=== PATIENT | female | born 1990 | race Caucasian/White ===

== ENCOUNTER 2017-03-01 09:24 | Emergency (ER) | payer MEDICAID ==
[~2017-03-01] VITALS: Ht 165.1 cm; Wt 85.0 kg
[2017-03-01 09:24] VITALS: BP 168/98; PULSE 132; RESP 20; TEMP 99.9; O2SAT 99
[~2017-03-01 09:24] MED LIST: CIPR500T2 PO; DYAZ37.52 PO; HYDR10TA16 PO; PYRI200T4 PO
[2017-03-01] MEDS ORDERED: SODIUM CHLOR 0.9% 1000 ML INJ 1,000 ML IV ONE (09:45)
[2017-03-01] MEDS ORDERED: KETOROLAC TROMETHAMINE 30 MG/ML (IVP) VIAL IV PUSH ONE (09:45)
[2017-03-01] MEDS ORDERED: SODIUM CHLORIDE 0.9% FLUSH 10 ML FLUSH IVF PRN (09:45)
[2017-03-01] MEDS ORDERED: ONDANSETRON HCL 4 MG/2 ML VIAL IV PUSH ONE ×2 (09:45→10:45)
[2017-03-01 09:54] VITALS: BP 160/118; PULSE 116; RESP 22; O2SAT 100
--- NOTE | 2017-03-01 09:57 | PD ---
HPI Chief Complaint: Respiratory Symptoms Time Seen by Provider: 09:37 Travel History International Travel<30 days: No Contact w/Intl Traveler<30days: No Traveled to known affect area: No History of Present Illness HPI Patient is a 26 year old female who comes in complaining of shortness of breath and "shakiness." She says this started this morning at 8AM. She says that has had episodes like this for the past 2-3 months, but they usually do not last this long. She denies chest pain, but says that she has pain to her upper abdomen, both the left and right side. She has had nausea, but denies vomiting. She says she feels hot, but has not had a fever. She denies cough, but has had some congestion. She denies sore throat. She has not taken anything for her symptoms. [facility] Past Medical History Medical History: Denies Significant Hx Cancer: No Cardiovascular Problems: No Diabetes: No Hepatitis: No Hiatal Hernia: No Hypertension: No Medical other: No Respiratory: No Immunizations Current: Yes Thyroid Disease: No ?: Not LMP: 02/12/17 Past Surgical History Pacemaker: No Other Surgery: Yes Social History Alcohol Use: Yes (3 drinks daily) Tobacco Use: Yes Substance Use: No Allergies-Medications (Allergen,Severity, Reaction): Coded Allergies: No Known Allergies (Verified , 11/25/10) Reported Meds & Prescriptions Reported Meds & Active Scripts Active No Active Prescriptions or Reported Medications Review of Systems Except as stated in HPI: all other systems reviewed are Neg General / Constitutional: No: Fever HENT: Positive: Congestion, No: Headaches, Lightheadedness, Sore Throat Cardiovascular: Positive: Palpitations, No: Chest Pain or Discomfort Respiratory: Positive: Shortness of Breath, No: Cough Gastrointestinal: Positive: Nausea, Abdominal Pain, No: Vomiting Genitourinary: No: Dysuria Musculoskeletal: No: Edema, Pain Skin: No Rash, No Change in Pigmentation Neurologic: No: Weakness, Dizziness Psychiatric: Positive: Anxiety Physical Exam Narrative GENERAL: Awake and alert, in no acute distress. SKIN: Focused skin assessment warm/dry. No wounds or signs of infection. HEAD: Atraumatic. Normocephalic. EYES: Pupils equal and round. No scleral icterus. ENT: Mucous membranes pink and moist. NECK: Trachea midline. No JVD. CARDIOVASCULAR: Tachycardia. No murmur appreciated. RESPIRATORY: No accessory muscle use. Clear to auscultation. Breath sounds equal bilaterally. GASTROINTESTINAL: Abdomen soft, nondistended. Tender to palpation of the midepigastric area. No rebound or guarding. MUSCULOSKELETAL: No obvious deformities. No clubbing. No cyanosis. No edema. No calf tenderness. NEUROLOGICAL: Awake and alert. No obvious cranial nerve deficits. Motor grossly within normal limits. Normal speech. PSYCHIATRIC: Appropriate mood and affect; insight and judgment normal. Data Data Last Documented VS Vital Signs Date Time Temp Pulse Resp B/P (MAP) Pulse Ox O2 Delivery O2 Flow Rate FiO2 03/01/17 11:16 91 20 142/91 (108) 98 Room Air 03/01/17 09:24 99.9 Orders Orders Complete Blood Count With Diff (03/01/17 09:43) Comprehensive Metabolic Panel (03/01/17 09:43) D-Dimer (03/01/17 09:43) Act Partial Throm Time (Ptt) (03/01/17 09:43) Prothrombin Time / Inr (Pt) (03/01/17 09:43) Troponin I (03/01/17 09:43) Urinalysis - C+S If Indicated (03/01/17 09:43) Iv Access Insert/Monitor (03/01/17 09:43) Electrocardiogram (03/01/17 09:43) Ecg Monitoring (03/01/17 09:43) Oximetry (03/01/17 09:43) Oxygen Administration (03/01/17 09:43) Chest, Pa & Lat (03/01/17 09:43) Sodium Chloride 0.9% Flush (Ns Flush) (03/01/17 09:45) Ed Urine Pregnancytest Poc (03/01/17 09:43) Lipase (03/01/17 09:43) Sodium Chlor 0.9% 1000 Ml Inj (Ns 1000 M (03/01/17 09:45) Ketorolac Inj (Toradol Inj) (03/01/17 09:45) Ondansetron Inj (Zofran Inj) (03/01/17 09:45) Influenzae A/B Antigen (03/01/17 09:43) Ondansetron Inj (Zofran Inj) (03/01/17 10:45) Ct Abd/Pel W Iv Contrast(Rout) (03/01/17 ) Iohexol 350 Inj (Omnipaque 350 Inj) (03/01/17 11:30) Labs Laboratory Tests Test 03/01/17 09:50 03/01/17 10:05 White Blood Count 4.9 TH/MM3 Red Blood Count 3.50 MIL/MM3 Hemoglobin 13.3 GM/DL Hematocrit 38.5 % Mean Corpuscular Volume 109.8 FL Mean Corpuscular Hemoglobin 38.0 PG Mean Corpuscular Hemoglobin Concent 34.6 % Red Cell Distribution Width 15.4 % Platelet Count 112 TH/MM3 Mean Platelet Volume 9.5 FL Neutrophils (%) (Auto) 66.5 % Lymphocytes (%) (Auto) 25.4 % Monocytes (%) (Auto) 6.1 % Eosinophils (%) (Auto) 1.2 % Basophils (%) (Auto) 0.8 % Neutrophils # (Auto) 3.2 TH/MM3 Lymphocytes # (Auto) 1.2 TH/MM3 Monocytes # (Auto) 0.3 TH/MM3 Eosinophils # (Auto) 0.1 TH/MM3 Basophils # (Auto) 0.0 TH/MM3 CBC Comment DIFF FINAL Differential Comment Prothrombin Time 11.8 SEC Prothromb Time International Ratio 1.1 RATIO Activated Partial Thromboplast Time 26.7 SEC D-Dimer Quantitative (PE/DVT) LESS THAN 0.19 MG/L FEU Blood Urea Nitrogen 7 MG/DL Creatinine 0.85 MG/DL Random Glucose 95 MG/DL Total Protein 8.9 GM/DL Albumin 3.5 GM/DL Calcium Level 8.7 MG/DL Alkaline Phosphatase 93 U/L Aspartate Amino Transf (AST/SGOT) 119 U/L Alanine Aminotransferase (ALT/SGPT) 72 U/L Total Bilirubin 1.1 MG/DL Sodium Level 135 MEQ/L Potassium Level 4.0 MEQ/L Chloride Level 103 MEQ/L Carbon Dioxide Level 23.6 MEQ/L Anion Gap 8 MEQ/L Estimat Glomerular Filtration Rate 81 ML/MIN Troponin I LESS THAN 0.02 NG/ML Lipase 534 U/L Urine Color YELLOW Urine Turbidity HAZY Urine pH 6.5 Urine Specific [place] 1.017 Urine Protein NEG mg/dL Urine Glucose (UA) NEG mg/dL Urine Ketones NEG mg/dL Urine Occult Blood NEG Urine Nitrite NEG Urine Bilirubin NEG Urine Urobilinogen 4.0 MG/DL Urine Leukocyte Esterase SMALL Urine RBC 2 /hpf Urine WBC 3 /hpf Urine Squamous Epithelial Cells 8 /hpf Urine Bacteria RARE /hpf Microscopic Urinalysis Comment CULT NOT INDICATED MDM Medical Decision Making Medical Screen Exam Complete: Yes Emergency Medical Condition: Yes Medical Record Reviewed: Yes Differential Diagnosis Dehydration versus influenza versus viral illness versus pneumonia Narrative Course Patient is a 26-year-old female who comes in complaining of shortness of breath , upper abdominal pain, nausea. Exam shows some epigastric tenderness on palpation. IV established, labs sent. Labs show a lipase of 534. There are no other acute abnormalities. D-dimer is negative, troponin is negative. Chest x-ray shows no acute abnormalities. CT abdomen and pelvis shows prominence of the spleen, no other acute abnormalities. Patient informed of these results. She was given fluids and Toradol and feels better. She is able to drink water without vomiting. Last 24 hours Impressions Chest X-Ray 03/01/17 0943 Signed Impressions: Service Date/Time: Wednesday, March 01, 2017 09:52 - CONCLUSION: Normal examination. Manoj Zamora MD Patient does admit to drinking alcohol. She is advised that this can be a cause of pancreatitis. She is advised to avoid alcohol. Advised to drink fluids, avoid eating solids today. Advised to eat a bland diet tomorrow. Advised follow-up at the [facility] for repeat testing. Advised to return as needed for any worsening symptoms. Diagnosis Primary Impression: Pancreatitis Qualified Codes: K85.20 - Alcohol induced acute pancreatitis without necrosis or infection Referrals: [facility] Patient Instructions: General Instructions, Pancreatitis (ED) Additional Instructions: Drink liquids today, allow her pancreas to rest. Avoid alcohol. Eat a bland diet tomorrow. Follow-up in the [facility] for repeat blood work and repeat lipase. Return to the ED as needed for any worsening symptoms. Scripts No Active Prescriptions or Reported Meds Disposition: 01 DISCHARGE HOME Condition: Stable Sophia Tabares MD Mar 01, 2017 09:57
--- NOTE | 2017-03-01 10:03 | RADRPT ---
EXAM DATE/TIME: 03/01/2017 09:52 [facility] COMPARISON: No previous studies available for comparison. INDICATIONS : Chest pressure and dizziness. MEDICAL HISTORY : None. SURGICAL HISTORY : None. ENCOUNTER: Initial ACUITY: 2 weeks PAIN SCORE: 9/10 LOCATION: Bilateral lower chest FINDINGS: PA and lateral views of the chest demonstrate the lungs to be symmetrically aerated without evidence of mass, infiltrate or effusion. The cardiomediastinal contours are unremarkable. Osseous structure s are intact. CONCLUSION: Normal examination. Manoj Zamora MD on March 01, 2017 at 10:01 Board Certified Radiologist. This report was verified electronically.
[2017-03-01 10:10] LABS: AUTOMATED NEUTROPHIL # 3.2 TH/MM3 (1.8-7.7); BASOPHIL % 0.8 % (0.0-2.0); EOSINOPHIL # 0.1 TH/MM3 (0-0.4); EOSINOPHIL % 1.2 % (0.0-4.0); HEMATOCRIT 38.5 % (35.0-46.0); HEMO FLAGS DIFF FINAL; LYMPH % 25.4 % (9.0-44.0); LYMPHOCYTE # 1.2 TH/MM3 (1.0-4.8); MEAN CELL VOLUME 109.8 FL (80.0-100.0); MEAN CORPUSCULAR HGB CONC 34.6 % (32.0-36.0); MONO % 6.1 % (0.0-8.0); NEUT % 66.5 % (16.0-70.0); PLATELET COUNT 112 TH/MM3 (150-450); RED CELL DISTRIBUTION WIDTH 15.4 % (11.6-17.2); WHITE BLOOD COUNT 4.9 TH/MM3 (4.0-11.0)
[2017-03-01 10:25] LABS: APTT (PATIENT) 26.7 SEC (24.3-30.1); INTERNATIONAL NORMALIZED RATIO 1.1 RATIO; PROTHROMBIN TIME - PATIENT 11.8 SEC (9.8-11.6)
[2017-03-01 10:37] LABS: BACTERIA, URINE RARE /hpf; BLOOD, URINE NEG (NEG); COMMENT (UR) CULT NOT INDICATED; CULTURE IF INDICATED CULT NOT INDICATED; GLUCOSE,URINE NEG (NEG); KETONE, URINE NEG (NEG); NITRITE,URINE NEG (NEG); PH, URINE 6.5 (5.0-8.5); SQUAMOUS EPITHELIAL CELL URINE 8 /hpf (0-5); URINE COLOR YELLOW (YELLW/STRAW)
[2017-03-01 10:47] LABS: ALKALINE PHOSPHATASE 93 U/L (45-117); ALT (GPT) 72 U/L (10-53); TOTAL BILIRUBIN ADULT 1.1 MG/DL (0.2-1.0)
[2017-03-01 10:57] LABS: ANION GAP 8 MEQ/L (5-15); BICARBONATE 23.6 MEQ/L (21.0-32.0); BLOOD UREA NITROGEN 7 MG/DL (7-18); CHLORIDE 103 MEQ/L (98-107); GLOMERULAR FILTRATION RATE 81 ML/MIN (>89); SODIUM (NA) 135 MEQ/L (136-145)
[2017-03-01 11:01] LABS: AST (GOT) 119 U/L (15-37)
[2017-03-01 11:16] VITALS: BP 142/91; PULSE 91; RESP 20; O2SAT 98
[2017-03-01] MEDS ORDERED: IOHEXOL 350 MG/ML 10 ML VIAL (for RAD DIAG) IVCONTRAST ONE (11:30)
--- NOTE | 2017-03-01 11:43 | RADRPT ---
EXAM DATE/TIME: 03/01/2017 11:28 [facility] COMPARISON: No previous studies available for comparison. INDICATIONS : Generalized weakness, bilateral upper quadrant pain, nausea and vomiting. IV CONTRAST: 98 cc Omnipaque 350 (iohexol) IV ORAL CONTRAST: No oral contrast ingested. RADIATION DOSE: 16.67 CTDIvol (mGy) MEDICAL HISTORY : None SURGICAL HISTORY : Right renal stent ENCOUNTER: Initial ACUITY: 1 day PAIN SCALE: 0/10 LOCATION: Bilateral upper quadrant TECHNIQUE: Volumetric scanning of the abdomen and pelvis was performed. Using automated exposure control and ad justment of the mA and/or kV according to patient size, radiation dose was kept as low as reasonably achievable to obtain optimal diagnostic quality images. DICOM format image data is available electro nically for review and comparison. FINDINGS: LOWER LUNGS: The visualized lower lungs are clear. LIVER: Homogeneously lower density without lesion. There is no dilation of the biliary tree. No calcified gallstones. SPLEEN: Enlarged in size without lesion. PANCREAS: Within normal limits. KIDNEYS: The right kidney is larger than the left. There is no mass, stone or hydronephrosis. ADRENAL GLANDS: Within normal limits. VASCULAR: There is no aortic aneurysm. BOWEL/MESENTERY: The stomach, small bowel, and colon demonstrate no acute abnormality. There is no free intraperitone al air or fluid. ABDOMINAL WALL: Within normal limits. RETROPERITONEUM: There is no lymphadenopathy. BLADDER: No wall thickening or mass. REPRODUCTIVE: Within normal limits. INGUINAL: There is no lymphadenopathy or hernia. MUSCULOSKELETAL: Within normal limits for patient age. CONCLUSION: Normal examination except for mild asymmetry of the kidneys and a fatty liver. The spleen is prominen t in size almost 16 cm in cephalocaudad height Manoj Zamora MD on March 01, 2017 at 11:39 Board Certified Radiologist. This report was verified electronically.
[2017-03-01 12:46] VITALS: BP 131/81
--- NOTE | 2017-03-03 08:43 | EKG ---
Date Performed: 03/01/2017 Time Performed: 10:18:13 PTAGE: 26 years EKG: SINUS TACHYCARDIA ABNORMAL RHYTHM ECG NO PREVIOUS TRACING DOCTOR: Manoj Delgadillo Interpretating Date/Time 03/03/2017 08:42:19
== END 2017-03-01 12:58 | disposition home or self-care (01) ==
LOC: NEPD 09:24
DX: K85.20 Alcohol induced acute pancreatitis without necrosis or infection (principal)
CPT/HCPCS: 71020; 74177; 80053; 81001; 83690; 84484; 84703; 85025; 85379; 85610; 85730; 87804; 93005; 96361; 96374; 96376; 99285; J1885; J2405; J7030; Q9967

== ENCOUNTER 2017-09-02 10:57 | Emergency (ER) | payer BC, MEDICAID, OTHER ==
[~2017-09-02] VITALS: Ht 165.1 cm; Wt 94.0 kg
[2017-09-02 11:18] VITALS: BP 134/68; PULSE 127; RESP 18; TEMP 102.1; O2SAT 96
--- NOTE | 2017-09-02 11:52 | PD ---
HPI Chief Complaint: Flank/Kidney Pain Time Seen by Provider: 11:33 Travel History International Travel<30 days: No Contact w/Intl Traveler<30days: No Traveled to known affect area: No History of Present Illness HPI 27-year-old female complains of bilateral flank pain and dysuria and nausea vomiting. Patient states that symptoms started 4 days ago. Patient states that the pain is aching pain localized to bilateral flank area. Patient denies any pain radiation. Patient denies any vaginal discharge bleeding. Patient denies any fever chills. Patient has history kidney stone in the past. On a scale of 1-10 the pain is a 10. Patient states that she had fever this morning. Patient was seen at local urgent care center and referred to ED for evaluation. Patient was given Zofran 4 mg ODT and Tylenol 6 50 million p.o. prior to arrival. Patient has history of heavy alcohol abuse until recently. Patient states that she stopped drinking about a week ago. PFSH Past Medical History Cancer: No Cardiovascular Problems: No Diabetes: No Diminished Hearing: No Hepatitis: No Hiatal Hernia: No Hypertension: No Respiratory: No Immunizations Current: Yes Thyroid Disease: No Tetanus Vaccination: Unknown Influenza Vaccination: No ?: Not LMP: 08/26/17 Past Surgical History Pacemaker: No Other Surgery: Yes (lithotripsy) Social History Alcohol Use: Yes (3 drinks daily) Tobacco Use: Yes (quit 4 weeks ago) Substance Use: No Allergies-Medications (Allergen,Severity, Reaction): Coded Allergies: No Known Allergies (Verified Adverse Reaction, Unknown, 09/02/17) Reported Meds & Prescriptions Reported Meds & Active Scripts Active No Active Prescriptions or Reported Medications Review of Systems General / Constitutional: No: Fever Eyes: No: Visual changes HENT: No: Headaches Cardiovascular: No: Chest Pain or Discomfort Respiratory: No: Shortness of Breath Gastrointestinal: Positive: Nausea, Vomiting, No: Abdominal Pain Genitourinary: Positive: Dysuria Musculoskeletal: No: Pain Skin: No Rash Neurologic: No: Weakness Psychiatric: No: Depression Endocrine: No: Polydipsia Hematologic/Lymphatic: No: Easy Bruising Physical Exam Narrative GENERAL: Well-nourished, well-developed patient. SKIN: Focused skin assessment warm/dry. HEAD: Normocephalic. EYES: No scleral icterus. No injection or drainage. NECK: Supple, trachea midline. No JVD or lymphadenopathy. CARDIOVASCULAR: Regular rate and rhythm without murmurs, gallops, or rubs. RESPIRATORY: Breath sounds equal bilaterally. No accessory muscle use. GASTROINTESTINAL: Abdomen soft, non-tender, nondistended. MUSCULOSKELETAL: No cyanosis, or edema. BACK: Patient has bilateral CVA tenderness. Data Data Last Documented VS Vital Signs Date Time Temp Pulse Resp B/P (MAP) Pulse Ox O2 Delivery O2 Flow Rate FiO2 09/02/17 14:21 97 18 119/70 (86) 97 Room Air 09/02/17 13:34 99.1 Orders Orders Complete Blood Count With Diff (09/02/17 11:41) Comprehensive Metabolic Panel (09/02/17 11:41) Urinalysis - C+S If Indicated (09/02/17 11:41) Ct Abd/Pel W/O Iv Contrast (09/02/17 11:41) Iv Access Insert/Monitor (09/02/17 11:41) Ecg Monitoring (09/02/17 11:41) Oximetry (09/02/17 11:41) Ed Urine Pregnancytest Poc (09/02/17 11:41) Urine Culture (09/02/17 11:35) Ceftriaxone Inj (Rocephin Inj) (09/02/17 13:15) Ondansetron Odt (Zofran Odt) (09/02/17 13:15) Ketorolac Inj (Toradol Inj) (09/02/17 13:15) Sodium Chlorid 0.9% 500 Ml Inj (Ns 500 M (09/02/17 14:00) Potassium Chloride (Kcl) (09/02/17 14:00) Ed Discharge Order (09/02/17 14:32) Labs Laboratory Tests Test 09/02/17 11:35 09/02/17 12:11 Urine Collection Type VOIDED Urine Color GARY Urine Turbidity SL CLOUDY Urine pH 5.5 Urine Specific [place] 1.010 Urine Protein 30 mg/dL Urine Glucose (UA) 100 mg/dL Urine Ketones TRACE mg/dL Urine Occult Blood SMALL Urine Nitrite POS Urine Bilirubin MOD Urine Urobilinogen GREATER/EQUAL 8.0 MG/DL Urine Leukocyte Esterase LARGE Urine WBC INNUM /hpf Urine WBC Clumps FEW Urine Squamous Epithelial Cells >8 /hpf Urine Bacteria MANY /hpf Microscopic Urinalysis Comment CULTURE INDICATED White Blood Count 4.0 TH/MM3 Red Blood Count 3.10 MIL/MM3 Hemoglobin 11.5 GM/DL Hematocrit 33.9 % Mean Corpuscular Volume 109.2 FL Mean Corpuscular Hemoglobin 37.0 PG Mean Corpuscular Hemoglobin Concent 33.9 % Red Cell Distribution Width 16.1 % Platelet Count 55 TH/MM3 Mean Platelet Volume 9.8 FL Neutrophils (%) (Auto) 64.4 % Lymphocytes (%) (Auto) 23.8 % Monocytes (%) (Auto) 10.7 % Eosinophils (%) (Auto) 0.1 % Basophils (%) (Auto) 1.0 % Neutrophils # (Auto) 2.6 TH/MM3 Lymphocytes # (Auto) 1.0 TH/MM3 Monocytes # (Auto) 0.4 TH/MM3 Eosinophils # (Auto) 0.0 TH/MM3 Basophils # (Auto) 0.0 TH/MM3 CBC Comment AUTO DIFF Differential Comment AUTO DIFF CONFIRMED Platelet Estimate LOW Platelet Morphology Comment NORMAL Blood Urea Nitrogen 10 MG/DL Creatinine 1.10 MG/DL Random Glucose 97 MG/DL Total Protein 8.2 GM/DL Albumin 3.2 GM/DL Calcium Level 8.6 MG/DL Alkaline Phosphatase 50 U/L Aspartate Amino Transf (AST/SGOT) 58 U/L Alanine Aminotransferase (ALT/SGPT) 44 U/L Total Bilirubin 2.1 MG/DL Sodium Level 129 MEQ/L Potassium Level 3.0 MEQ/L Chloride Level 95 MEQ/L Carbon Dioxide Level 21.5 MEQ/L Anion Gap 13 MEQ/L Estimat Glomerular Filtration Rate 60 ML/MIN MDM Medical Decision Making Medical Screen Exam Complete: Yes Emergency Medical Condition: Yes Interpretation(s) 1340 PM. CBC WBC 4.0. Hemoglobin 11.5 hematocrit 33.9. MCV 109.2. Normal differential. Platelet 55. Sodium 129. Potassium 3.0. Creatinine 1.10. GFR 60. UA positive for WBC and bacteria. 1433 PM. Last Impressions Abdomen/Pelvis CT 09/02/17 1141 Signed Impressions: CONCLUSION: 1. Stranding of the perinephric fat degree adjacent to the upper pole the left kidney. No stones or hydronephrosis. This could relate to acute pyelonephritis . 2. Splenomegaly. 3. Cholelithiasis without CT evidence to suggest acute cholecystitis. Differential Diagnosis Differential diagnosis including pyelonephritis, nephrolithiasis, UTI, viral syndrome. Narrative Course 27-year-old female with bilateral flank pain and dysuria nausea vomiting and fever. Rocephin 1 g IV given. Toradol 30 mg IV. Zofran 4 mg ODT. Normal saline solution 500 cc IV bolus. KCl 40 mEq p.o. given. Diagnosis Primary Impression: Pyelonephritis Additional Impressions: Hyponatremia Hypokalemia Patient Instructions: General Instructions Additional Instructions: Advised patient to take [id number] B12 and folate supplement. Follow up with local physician for CBC and platelet count check. Avoid alcohol. Take medications as directed. Follow with local physician. Return if worse. Med/Other Pt SpecificInfo: Prescription(s) given Scripts Potassium Chloride ER (Potassium Chloride ER) 10 Meq Cap 10 MEQ PO DAILY for Electrolyte Replacement, #7 CAP 0 Refills Prov: Asher Negro MD 09/02/17 Ibuprofen (Ibuprofen) 600 Mg Tab 600 MG PO TID for Pain, #21 TAB 0 Refills Prov: Asher Negro MD 09/02/17 Tramadol (Tramadol) 50 Mg Tab 50 MG PO Q6H Y for PAIN, #12 TAB 0 Refills Prov: Asher Negro MD 09/02/17 Sulfamethoxazole-Trimethoprim (Bactrim DS) 800-160 Mg Tab 1 TAB PO BID for Infection, #20 TAB 0 Refills Prov: Asher Negro MD 09/02/17 Disposition: 01 DISCHARGE HOME Condition: Stable Asher Negro MD September 02, 2017 11:52
[2017-09-02 12:16] VITALS: O2SAT 98
[2017-09-02 12:21] LABS: AUTOMATED NEUTROPHIL # 2.6 TH/MM3 (1.8-7.7); EOSINOPHIL % 0.1 % (0.0-4.0); HEMATOCRIT 33.9 % (35.0-46.0); HEMOGLOBIN 11.5 GM/DL (11.6-15.3); LYMPH % 23.8 % (9.0-44.0); MEAN CELL VOLUME 109.2 FL (80.0-100.0); MEAN CORPUSCULAR HGB CONC 33.9 % (32.0-36.0); MEAN PLATELET VOLUME 9.8 FL (7.0-11.0); MONO % 10.7 % (0.0-8.0); MONOCYTE # 0.4 TH/MM3 (0-0.9); NEUT % 64.4 % (16.0-70.0); PLATELET COUNT 55 TH/MM3 (150-450); RED CELL DISTRIBUTION WIDTH 16.1 % (11.6-17.2)
[2017-09-02 12:24] LABS: BILIRUBIN, URINE MOD (NEG); BLOOD, URINE SMALL (NEG); GLUCOSE,URINE 100 mg/dL (NEG); KETONE, URINE TRACE mg/dL (NEG); NITRITE,URINE POS (NEG); PH, URINE 5.5 (5.0-8.5); URINE LEUKOCYTE ESTERASE LARGE (NEG)
[2017-09-02 12:26] LABS: URINE COLOR AMBER (YELLW/STRAW)
[2017-09-02 12:32] LABS: WBC, URINE INNUM /hpf (0-5); WHITE BLOOD CELL CLUMPS FEW
[2017-09-02 12:33] LABS: BACTERIA, URINE MANY /hpf; SQUAMOUS EPITHELIAL CELL URINE >8 /hpf (0-5)
[2017-09-02 12:34] LABS: CHLORIDE 95 MEQ/L (98-107); SODIUM (NA) 129 MEQ/L (136-145)
[2017-09-02 12:37] LABS: ALBUMIN 3.2 GM/DL (3.4-5.0); BICARBONATE 21.5 MEQ/L (21.0-32.0); BLOOD UREA NITROGEN 10 MG/DL (7-18); CALCIUM 8.6 MG/DL (8.5-10.1); GLUCOSE,RANDOM 97 MG/DL (74-106)
[2017-09-02 12:40] LABS: ALT (GPT) 44 U/L (10-53); AST (GOT) 58 U/L (15-37); GLOMERULAR FILTRATION RATE 60 ML/MIN (>89)
[2017-09-02 12:42] LABS: TOTAL BILIRUBIN ADULT 2.1 MG/DL (0.2-1.0); TOTAL PROTEIN 8.2 GM/DL (6.4-8.2)
[2017-09-02 12:43] LABS: ALKALINE PHOSPHATASE 50 U/L (45-117)
[2017-09-02 13:14] VITALS: BP 113/68; PULSE 100; RESP 16; O2SAT 98
[2017-09-02] MEDS ORDERED: KETOROLAC TROMETHAMINE 30 MG/ML (IVP) VIAL IV PUSH ONE (13:15)
[2017-09-02] MEDS ORDERED: cefTRIAXone INJ 1,000 MG in SODIUM CHLORIDE 0.9% INJ 100 ML IV ONE (13:15)
[2017-09-02] MEDS ORDERED: ONDANSETRON ODT 4 MG TAB PO ONE (13:15)
[2017-09-02 13:34] VITALS: BP 106/63; PULSE 97; RESP 18; TEMP 99.1; O2SAT 97
[2017-09-02] MEDS ORDERED: SODIUM CHLORID 0.9% 500 ML INJ 500 ML IV ONE (14:00)
[2017-09-02] MEDS ORDERED: POTASSIUM CHLORIDE 20 MEQ CONTROLLED RELEASE TAB PO ONE (14:00)
[2017-09-02 14:21] VITALS: BP 119/70; PULSE 97; RESP 18; O2SAT 97
--- NOTE | 2017-09-02 14:27 | RADRPT ---
EXAM DATE: 09/02/2017 2:13 PM EDT AGE/SEX: 27 years / Female INDICATIONS: Bilateral flank pain for four days. CLINICAL DATA: This is the patient's initial encounter. Patient reports that signs and symptoms have been present for 4 - 6 days and indicates a pain score of 6/10. MEDICAL/SURGICAL HISTORY: Renal calculi. . right ureter stent placement RADIATION DOSE: 20.56 CTDI (mGy) ; Patient body habitus COMPARISON: No prior [place] exams available for comparison. TECHNIQUE: Multiple contiguous axial images were obtained through the abdomen. Images were obtained using multiple row detector helical technique. Using dose reduction techniques, radiation dose was ke pt as low as reasonably achievable to obtain optimal diagnostic quality images. FINDINGS: Lower Lungs: The visualized lower lungs are clear. Liver: The liver has a homogeneous density without space-occupying lesion. There is no dilation of th e biliary tree. Layering high density material within the gallbladder consistent with stones or sludg e. Tiny foci of air also noted felt to be within the stones. No layering air to suggest pneumobilia. No gallbladder wall thickening or surrounding fluid. Spleen: Splenomegaly without discernible mass. Pancreas: Unremarkable without mass or calcification. Kidneys: Normal in size and shape. No evidence of mass or hydronephrosis. Stranding of the perinephr ic fat on the left more pronounced adjacent to the upper pole. Adrenal Glands: Unremarkable. Aorta: The aorta and proximal iliac vessels are grossly unremarkable without aneurysmal dilation. Bowel/Mesentery: The bowel loops are grossly unremarkable. The cecum and sigmoid colon have a normal configuration. Abdominal Wall: Intact. Retroperitoneum: No evidence of adenopathy in the retrocrural, para-aortic, or deep pelvic regions. Bladder: Contours are smooth. Reproductive Organs: No abnormal masses or calcifications seen. Inguinal: The inguinal region is unremarkable without evidence of adenopathy. Bony Structures: Unremarkable. CONCLUSION: 1. Stranding of the perinephric fat degree adjacent to the upper pole the left kidney. No stones or hydronephrosis. This could relate to acute pyelonephritis. 2. Splenomegaly. 3. Cholelithiasis without CT evidence to suggest acute cholecystitis. Electronically signed by: Darryl Espino MD 09/02/2017 2:26 PM EDT
[2017-09-02] MEDS ORDERED: BACT800T5 PO (14:35)
[2017-09-02] MEDS ORDERED: TRAM50TA PO (14:35)
[2017-09-02] MEDS ORDERED: IBUP-232 PO (14:35)
[2017-09-02] MEDS ORDERED: POTA10CA PO (14:36)
[2017-09-02 14:54] VITALS: BP 106/62
== END 2017-09-02 14:56 | disposition home or self-care (01) ==
LOC: PHED 10:57
DX: N10 Acute pyelonephritis (principal); B96.20 Unspecified Escherichia coli [E. coli] as the cause of diseases classified elsewhere; E87.1 Hypo-osmolality and hyponatremia; E87.6 Hypokalemia
CPT/HCPCS: 74176; 80053; 81001; 84703; 85025; 87077; 87086; 87186; 96361; 96365; 96376; 99284; J0696; J1885; J7040